=== PATIENT | female | born 1995 | race Caucasian/White ===

== ENCOUNTER 2017-02-28 01:50 | Inpatient (IN) | payer BC ==
[~2017-02-28] VITALS: Ht 160 cm; Wt 84.8 kg
[2017-02-28] MEDS ORDERED: LR 1,000 ML IV SCH (02:09)
[2017-02-28] MEDS ORDERED: OXYTOCIN/NORMAL SALINE 1,000 ML IV SCH ×2 (02:09→12:12)
[2017-02-28] MEDS ORDERED: NALBUPHINE HCL 10 MG/ML AMP IVP PRN (02:15)
[2017-02-28] MEDS ORDERED: TERBUTALINE SULFATE 1 MG/ML VIAL SUBCUT ONE (02:15)
[2017-02-28 02:42] VITALS: BP_SYST 105
[2017-02-28 03:32] LABS: BASOPHILS # (AUTO) 0.1 K/uL (0.0-0.2); BASOPHILS % (AUTO) 0.6 % (0.0-2.0); EOSINOPHILS # (AUTO) 0.2 K/uL (0.0-0.4); EOSINOPHILS % (AUTO) 1.7 % (0.0-4.0); HEMATOCRIT 38.9 % (36-48); HEMOGLOBIN 12.4 g/dL (12.0-16.0); LYMPHOCYTES # (AUTO) 1.9 K/uL (1.0-5.5); LYMPHOCYTES % (AUTO) 17.9 % (20.5-51.5); MEAN CORPUSCULAR HEMOGLOBIN 27 pg (27-31); MEAN CORPUSCULAR HGB CONC 32 % (32-36); MEAN CORPUSCULAR VOLUME 84 fL (79.0-98.0); MONOCYTES # (AUTO) 0.5 K/uL (0.0-1.0); MONOCYTES % (AUTO) 4.6 % (1.7-9.3); NEUTROPHILS # (AUTO) 7.7 K/uL (1.8-7.7); NEUTROPHILS % (AUTO) 75.2 % (40.0-70.0); PLATELET COUNT (AUTO) 292 K/uL (130-430); RED BLOOD CELL COUNT(AUTO) 4.64 MIL/uL (4.2-6.2); RED CELL DISTRIBUTION WIDTH 14.6 % (9.0-15.0); WHITE BLOOD COUNT (AUTO) 10.4 K/uL (4.8-10.8)
[2017-02-28] MEDS ORDERED: fentaNYL CITRATE/PF 100 MCG/2 ML AMP ONE (05:55)
[2017-02-28] MEDS ORDERED: LR 500 ML IV ONE (08:50)
[2017-02-28] MEDS ORDERED: FENT2mCg/mL-ROPIVA0.2%/NS EPID 150 ML EP SCH (09:00)
[2017-02-28] MEDS ORDERED: OXYTOCIN/NORMAL SALINE 1,000 ML IV ONE (12:12)
[2017-02-28] MEDS ORDERED: DERMOPLAST SPRAY TP PRN (12:15)
[2017-02-28] MEDS ORDERED: ANUSOL 1 EA SUPP.RECT (PREPARATION H) RC PRN (12:15)
[2017-02-28] MEDS ORDERED: GLYCERIN/WITCH HAZEL (TUCKS PADS) TP PRN (12:15)
[2017-02-28] MEDS ORDERED: RHO(D) IMMUNE GLOBULIN/MALTOSE 1500 UNITS/1.3 ML (WINHRO) IM PRN (12:15)
[2017-02-28] MEDS ORDERED: HYDROCORTISONE 0.5%, 28.35 GM TOPICAL CREAM TP PRN (12:15)
[2017-02-28] MEDS ORDERED: OXYCODONE/ACETAMINOPHEN 5-325 TABLET PO PRN ×2 (12:15)
[2017-02-28] MEDS ORDERED: ACETAMINOPHEN 325 MG TABLET PO PRN (12:15)
[2017-02-28] MEDS ORDERED: SENNOSIDES/DOCUSATE SODIUM 1 TAB TABLET(SENOKOT-S) PO PRN (12:15)
[2017-02-28] MEDS ORDERED: DOCUSATE SODIUM 100 MG CAPSULE PO PRN (12:15)
[2017-02-28] MEDS ORDERED: LANOLIN 7 GM OINT. TP PRN (12:15)
[2017-02-28] MEDS ORDERED: MEASLES,MUMPS&RUBELLA VACC/PF 12500 UNIT/0.5 ML VIAL SUBQ PRN (12:15)
[2017-02-28] MEDS ORDERED: METHYLERGONOVINE MALEATE 0.2 MG TABLET PO PRN (12:15)
[2017-02-28] MEDS ORDERED: ONDANSETRON HCL 4 MG/2 ML VIAL ONE (13:53)
[2017-02-28] MEDS ORDERED: ONDANSETRON HCL 4 MG/2 ML VIAL IVP PRN (14:00)
[2017-02-28] MEDS ORDERED: IBUPROFEN 600 MG TABLET ONE (14:23)
[2017-02-28] MEDS ORDERED: MINERAL OIL 30 ML UDC PO ONE (14:59)
[2017-02-28] MEDS ORDERED: TEMAZEPAM 15 MG CAPSULE PO PRN (21:00)
[2017-03-01] MEDS: IBUPROFEN 600 MG TABLET PO SCH ×2 (05:47→12:48)
[2017-03-01 09:33] LABS: BASOPHILS # (AUTO) 0.1 K/uL (0.0-0.2); BASOPHILS % (AUTO) 0.5 % (0.0-2.0); EOSINOPHILS # (AUTO) 0.2 K/uL (0.0-0.4); EOSINOPHILS % (AUTO) 2.4 % (0.0-4.0); HEMOGLOBIN 12.1 g/dL (12.0-16.0); LYMPHOCYTES # (AUTO) 1.8 K/uL (1.0-5.5); LYMPHOCYTES % (AUTO) 17.3 % (20.5-51.5); MEAN CORPUSCULAR HEMOGLOBIN 27 pg (27-31); MEAN CORPUSCULAR HGB CONC 32 % (32-36); MEAN CORPUSCULAR VOLUME 84 fL (79.0-98.0); MONOCYTES # (AUTO) 0.5 K/uL (0.0-1.0); NEUTROPHILS # (AUTO) 7.6 K/uL (1.8-7.7); NEUTROPHILS % (AUTO) 74.8 % (40.0-70.0); PLATELET COUNT (AUTO) 277 K/uL (130-430); RED BLOOD CELL COUNT(AUTO) 4.56 MIL/uL (4.2-6.2); RED CELL DISTRIBUTION WIDTH 14.8 % (9.0-15.0); WHITE BLOOD COUNT (AUTO) 10.2 K/uL (4.8-10.8)
[2017-03-01] MEDS ORDERED: ROPIVACAINE HCL/PF 5 MG/ML 0.5% 30 ML VIAL INJ ONE (14:59)
== END 2017-03-01 15:00 | disposition home or self-care (01) | DRG 775 ==
LOC: SPU 01:50
PROVIDERS: ADMIT Obstetrics & Gynecology; ATTEND Obstetrics & Gynecology
PROC: 10E0XZZ Delivery of Products of Conception, External Approach (ICD-10-PCS; principal; 2017-02-28)
PROC: 3E0P3VZ Introduction of Hormone into Female Reproductive, Percutaneous Approach (ICD-10-PCS; 2017-02-28)
PROC: 3E0R3BZ Introduction of Anesthetic Agent into Spinal Canal, Percutaneous Approach (ICD-10-PCS; 2017-02-28)
PROC: 00HU33Z Insertion of Infusion Device into Spinal Canal, Percutaneous Approach (ICD-10-PCS; 2017-02-28)
DX: O80 Encounter for full-term uncomplicated delivery (principal); Z37.0 Single live birth; Z3A.39 39 weeks gestation of pregnancy
CPT/HCPCS: 36415; 81002-TC; 85025; 86592; 86886; 86900; 86901; J2405; J3010; J7120

== ENCOUNTER 2017-03-02 17:05 | Emergency (ER) | payer BC ==
[~2017-03-02] VITALS: Ht 160 cm; Wt 75.7 kg
[2017-03-02 17:08] VITALS: BP_SYST 114
[2017-03-02] MEDS ORDERED: PROCHLORPERAZINE EDISYLATE 10 MG/2 ML VIAL IVP ONE (20:00)
[2017-03-02] MEDS ORDERED: NACL 0.9% 1,000 ML IV ONE (20:00)
[2017-03-02] MEDS ORDERED: DIPHENHYDRAMINE INJ 50 MG/ML VIAL IVP ONE (20:00)
[2017-03-02 20:27] LABS: BILIRUBIN,URINE 1+ (NEGATIVE); BLOOD, URINE 3+ (NEGATIVE); CLARITY/URINE CLOUDY (CLEAR); COLOR,URINE YELLOW (YELLOW); GLUCOSE,URINE NEGATIVE (NEGATIVE); KETONES,URINE 3+ (NEGATIVE); LEUKOCYTE ESTERASE ,URINE 2+ (NEGATIVE); NITRITE, URINE POSITIVE (NEGATIVE); PH,URINE 6.5 (5.0-8.0); PROTEIN URINE 1+ (NEGATIVE)
[2017-03-02 20:50] LABS: BACTERIA,URINE FEW /HPF (None Seen); RBC,URINE 80-100 /HPF (0-3); WBC,URINE 80-100 /HPF (0-3)
[2017-03-02 22:01] VITALS: BP_SYST 111
== END 2017-03-02 22:01 | disposition home or self-care (01) ==
LOC: SED 17:05
DX: O86.20 Urinary tract infection following delivery, unspecified (principal); R51 Headache; M54.9 Dorsalgia, unspecified
CPT/HCPCS: 81000; 87086; 96361; 96374; 96375; 99284; J0780; J1200; J7030

== ENCOUNTER 2020-08-26 05:12 | Inpatient (IN) | payer BC, SELFPAY ==
[~2020-08-26] VITALS: Ht 160 cm; Wt 81.6 kg
[2020-08-26] MEDS ORDERED: LR 1,000 ML IV ONE (05:30)
[2020-08-26] MEDS ORDERED: LR 500 ML IV ONE ×2 (05:30→11:45)
[2020-08-26] MEDS ORDERED: OXYTOCIN/0.9 % SODIUM CHLORIDE 1,000 ML IV SCH ×2 (05:30→16:15)
[2020-08-26] MEDS ORDERED: NALBUPHINE HCL 10 MG/ML AMP IVP PRN (05:30)
[2020-08-26] MEDS ORDERED: TERBUTALINE SULFATE 1 MG/ML VIAL SUBCUT ONE (05:30)
[2020-08-26 06:13] LABS: BASOPHILS % (AUTO) 0.5 % (0.0-2.0); EOSINOPHILS # (AUTO) 0.1 K/uL (0.0-0.4); EOSINOPHILS % (AUTO) 1.8 % (0.0-4.0); HEMATOCRIT 38.8 % (36-48); HEMOGLOBIN 12.7 g/dL (12.0-16.0); LYMPHOCYTES # (AUTO) 1.6 K/uL (1.0-5.5); MEAN CORPUSCULAR HEMOGLOBIN 28 pg (27-31); MEAN CORPUSCULAR HGB CONC 33 % (32-36); MEAN CORPUSCULAR VOLUME 85 fL (79.0-98.0); MONOCYTES # (AUTO) 0.5 K/uL (0.0-1.0); MONOCYTES % (AUTO) 5.8 % (1.7-9.3); NEUTROPHILS # (AUTO) 5.7 K/uL (1.8-7.7); NEUTROPHILS % (AUTO) 71.9 % (40.0-70.0); PLATELET COUNT (AUTO) 246 K/uL (130-430); RED BLOOD CELL COUNT(AUTO) 4.57 MIL/uL (4.2-6.2); RED CELL DISTRIBUTION WIDTH 16.1 % (9.0-15.0); WHITE BLOOD COUNT (AUTO) 7.9 K/uL (4.8-10.8)
[2020-08-26 06:54] VITALS: BP_SYST 104
[2020-08-26] MEDS: LR 1,000 ML IV SCH ×2 (06:55→14:06)
[2020-08-26] MEDS ORDERED: fentaNYL CITRATE/PF 100 MCG/2 ML AMP ONE (10:42)
[2020-08-26] MEDS ORDERED: ROPIVACAINE HCL/PF 0.2% 200 ML ONE (10:43)
[2020-08-26] MEDS ORDERED: FENT2mCg/mL-ROPIVA0.2%/NS EPID 200 ML EP SCH (11:45)
[2020-08-26] MEDS ORDERED: ePHEDrine sulfate 50 MG/ML VIAL IVP PRN (11:45)
[2020-08-26] MEDS ORDERED: fentaNYL CITRATE/PF 100 MCG/2 ML AMP EP ONE (11:45)
[2020-08-26] MEDS ORDERED: HYDROcodone/ACETAMIN 5-325 MG TAB (NORCO/ VICODIN) PO PRN (16:15)
[2020-08-26] MEDS ORDERED: NALOXONE HCL 0.4 MG/ML AMP (NARCAN) IVP PRN (16:15)
[2020-08-26] MEDS ORDERED: DERMOPLAST SPRAY TP PRN (16:15)
[2020-08-26] MEDS ORDERED: RHO(D) IMMUNE GLOBULIN/MALTOSE 1500 UNITS/1.3 ML (WINHRO) IM PRN (16:15)
[2020-08-26] MEDS ORDERED: LANOLIN 7 GM OINT. TP PRN (16:15)
[2020-08-26] MEDS ORDERED: ANUSOL 1 EA SUPP.RECT (PREPARATION H) RC PRN (16:15)
[2020-08-26] MEDS ORDERED: DIPH-TET-PERTUS Vaccine 0.5 ML VIAL (ADACEL) I.M. PRN (16:15)
[2020-08-26] MEDS ORDERED: METHYLERGONOVINE MALEATE 0.2 MG TABLET PO PRN (16:15)
[2020-08-26] MEDS ORDERED: HYDROCORTISONE 0.5% CREAM 28.4 GM CREAM.GM. TP PRN (16:15)
[2020-08-26] MEDS ORDERED: OXYCODONE/ACETAMINOPHEN 5-325 TABLET PO PRN ×2 (16:15)
[2020-08-26] MEDS ORDERED: MEASLES,MUMPS&RUBELLA VACC/PF 12500 UNIT/0.5 ML VIAL SUBQ PRN (16:15)
[2020-08-26] MEDS ORDERED: WITCH HAZEL LEAF 1 MED.PAD MED.PAD TP PRN (16:15)
[2020-08-26] MEDS ORDERED: OXYTOCIN/0.9 % SODIUM CHLORIDE 1,000 ML IV ONE (16:15)
[2020-08-26] MEDS: IBUPROFEN 600 MG TABLET PO SCH (18:06)
[2020-08-26] MEDS ORDERED: ONDANSETRON HCL 4 MG/2 ML VIAL IVP PRN (19:00)
[2020-08-26] MEDS ORDERED: TEMAZEPAM 15 MG CAPSULE PO PRN (21:00)
[2020-08-26] MEDS: SENNOSIDES/DOCUSATE SODIUM 1 TAB TABLET(SENOKOT-S) PO SCH (21:00)
[2020-08-26] MEDS ORDERED: METHYLERGONOVINE MALEATE 0.2 MG/ML AMP ONE ×3 (23:11→23:57)
[2020-08-26] MEDS ORDERED: OXYTOCIN 10 UNIT/ML VIAL ONE ×2 (23:17→23:58)
[2020-08-27] MEDS ORDERED: OXYTOCIN 30 UNIT in LR 1,000 ML IV SCH ×2 (01:00→05:00)
[2020-08-27] MEDS ORDERED: HYDROmorphone 1 MG/ML INJ. CARTRIDGE ONE (01:13)
[2020-08-27] MEDS ORDERED: HYDROmorphone 1 MG/ML INJ. CARTRIDGE IVP PRN (01:15)
[2020-08-27] MEDS ORDERED: METHYLERGONOVINE MALEATE IV SCH (01:15)
[2020-08-27] MEDS ORDERED: OXYTOCIN IV SCH (01:15)
[2020-08-27] MEDS ORDERED: HYDROmorphone 2 MG/ML VIAL IVP PRN (01:15)
[2020-08-27] MEDS ORDERED: NALOXONE HCL 0.4 MG/ML AMP (NARCAN) IVP PRN (01:15)
[2020-08-27] MEDS ORDERED: LR IV SCH (01:15)
[2020-08-27] MEDS ORDERED: METHYLERGONOVINE MALEATE 0.2 MG/ML AMP ONE (02:48)
[2020-08-27] MEDS: IBUPROFEN 600 MG TABLET PO SCH ×3 (06:00→18:13)
[2020-08-27 07:10] LABS: BASOPHILS # (AUTO) 0.1 K/uL (0.0-0.2); BASOPHILS % (AUTO) 0.5 % (0.0-2.0); EOSINOPHILS # (AUTO) 0.1 K/uL (0.0-0.4); EOSINOPHILS % (AUTO) 0.9 % (0.0-4.0); HEMATOCRIT 29.8 % (36-48); HEMOGLOBIN 9.9 g/dL (12.0-16.0); LYMPHOCYTES # (AUTO) 1.8 K/uL (1.0-5.5); LYMPHOCYTES % (AUTO) 16.6 % (20.5-51.5); MEAN CORPUSCULAR HEMOGLOBIN 29 pg (27-31); MEAN CORPUSCULAR HGB CONC 33 % (32-36); MEAN CORPUSCULAR VOLUME 87 fL (79.0-98.0); MONOCYTES # (AUTO) 0.7 K/uL (0.0-1.0); MONOCYTES % (AUTO) 6.4 % (1.7-9.3); NEUTROPHILS # (AUTO) 8.1 K/uL (1.8-7.7); NEUTROPHILS % (AUTO) 75.6 % (40.0-70.0); PLATELET COUNT (AUTO) 197 K/uL (130-430); RED BLOOD CELL COUNT(AUTO) 3.44 MIL/uL (4.2-6.2); RED CELL DISTRIBUTION WIDTH 16.1 % (9.0-15.0); WHITE BLOOD COUNT (AUTO) 10.7 K/uL (4.8-10.8)
[2020-08-27] MEDS ORDERED: DOCUSATE SODIUM 100 MG CAPSULE PO SCH (09:00)
[2020-08-27] MEDS ORDERED: OXYCODONE/ACETAMINOPHEN 5-325 TABLET PO PRN (09:30)
[2020-08-27] MEDS: OXYCODONE/ACETAMINOPHEN 5-325 TABLET PO PRN ×2 (09:40→14:59)
[2020-08-27] MEDS ORDERED: ePHEDrine sulfate 50 MG/ML VIAL IVP ONE (18:19)
[2020-08-27] MEDS: SENNOSIDES/DOCUSATE SODIUM 1 TAB TABLET(SENOKOT-S) PO SCH (20:48)
[2020-08-28] MEDS: IBUPROFEN 600 MG TABLET PO SCH ×3 (00:06→12:04)
[2020-08-28 08:20] LABS: BASOPHILS % (AUTO) 0.7 % (0.0-2.0); EOSINOPHILS # (AUTO) 0.2 K/uL (0.0-0.4); HEMATOCRIT 25.8 % (36-48); HEMOGLOBIN 8.4 g/dL (12.0-16.0); LYMPHOCYTES # (AUTO) 1.9 K/uL (1.0-5.5); LYMPHOCYTES % (AUTO) 32.4 % (20.5-51.5); MEAN CORPUSCULAR HEMOGLOBIN 28 pg (27-31); MEAN CORPUSCULAR HGB CONC 33 % (32-36); MEAN CORPUSCULAR VOLUME 87 fL (79.0-98.0); MONOCYTES # (AUTO) 0.4 K/uL (0.0-1.0); MONOCYTES % (AUTO) 6.5 % (1.7-9.3); NEUTROPHILS # (AUTO) 3.4 K/uL (1.8-7.7); NEUTROPHILS % (AUTO) 57.4 % (40.0-70.0); PLATELET COUNT (AUTO) 199 K/uL (130-430); RED BLOOD CELL COUNT(AUTO) 2.97 MIL/uL (4.2-6.2); WHITE BLOOD COUNT (AUTO) 5.9 K/uL (4.8-10.8)
== END 2020-08-28 12:20 | disposition home or self-care (01) | DRG 806 ==
LOC: SPU 05:12
PROVIDERS: ADMIT Specialist; ATTEND Specialist
PROC: 10E0XZZ Delivery of Products of Conception, External Approach (ICD-10-PCS; principal; 2020-08-26)
PROC: 3E0R3BZ Introduction of Anesthetic Agent into Spinal Canal, Percutaneous Approach (ICD-10-PCS; 2020-08-26)
PROC: 00HU33Z Insertion of Infusion Device into Spinal Canal, Percutaneous Approach (ICD-10-PCS; 2020-08-26)
DX: O62.2 Other uterine inertia (principal); D62 Acute posthemorrhagic anemia; Z37.0 Single live birth; Z3A.39 39 weeks gestation of pregnancy; O69.81X0 Labor and delivery complicated by cord around neck, without compression, not applicable or unspecified; O99.03 Anemia complicating the puerperium; Z20.822 Contact with and (suspected) exposure to COVID-19
CPT/HCPCS: 36415; 85025; 86592; 86886; 86900; 86901; J1170; J2210; J2405; J2590; J3010; J7120